=== PATIENT | male | born 1985 ===

== ENCOUNTER 2022-11-02 13:03 | Emergency (ER) | payer BC ==
[~2022-11-02] VITALS: Ht 182.9 cm; Wt 82.7 kg
[2022-11-02 13:13] VITALS: BP 154/78
== END 2022-11-02 19:28 | disposition left against medical advice (07) ==
LOC: ER 13:03
DX: M79.605 Pain in left leg (principal); Z53.21 Procedure and treatment not carried out due to patient leaving prior to being seen by health care provider
CPT/HCPCS: 99281